=== PATIENT | male | born 1955 | race Caucasian/White ===

== ENCOUNTER 2016-12-09 08:43 | Outpatient (CLI) | payer OTHER ==
[~2016-12-09] VITALS: Ht 177.8 cm; Wt 81.6 kg
[2016-12-09 09:40] VITALS: BP 113/64
[2016-12-09] MEDS ORDERED: UBID100C26 PO (09:51)
[2016-12-09] MEDS ORDERED: MAGN400C PO (09:51)
[2016-12-09] MEDS ORDERED: MULT-208 PO (09:51)
[2016-12-09] MEDS ORDERED: ASPI325T4 PO (09:51)
[2016-12-09] MEDS ORDERED: LIDOCAINE 1% / SOD BICARB 8.4% 20 ML VIAL. IJ ONE ×2 (09:54→10:15)
[2016-12-09 10:45] VITALS: BP 133/73
--- NOTE | 2016-12-09 10:57 | PDOC1 ---
History and Physical Date of Procedure Date of Admission 12/09/16 Procedure Procedure Sono guided right neck mass bx Indication Indication Palpable, nontender right neck mass/adenopathy Past Medical History Past Medical History See Nursing Pre procedure PMH Past Surgical History Past Surgical History See Nursing Pre procedure PSH Current Medications Current Medications Current Medications Lidocaine/Sodium Bicarbonate (Buffered Lidocaine 1%) 20 ml STK-MED ONCE IJ ; Start 12/09/16 at 09:54; Stop 12/09/16 at 09:55; Status DC Lidocaine/Sodium Bicarbonate (Buffered Lidocaine 1%) 20 ml 1X ONCE IJ Last administered on 12/09/16t 10:32; Start 12/09/16 at 10:15; Stop 12/09/16 at 10:16; Status DC Active Scripts Active Reported Aspirin 325 Mg Tablet 1 Tab PO DAILY Magnesium (Magnesium Oxide) 400 Mg Capsule 1 Cap PO BID Coq-10 (Ubidecarenone) 100 Mg Capsule 100 Mg PO DAILY Multi-Day Vitamins (Multivitamin) 1 Each Tablet 1 Tab PO DAILY Allergies Allergies: Coded Allergies: No Known Drug Allergies (Unverified , 12/09/16) Physical Exam Vital Signs Vital Signs Date Time Temp Pulse Resp B/P Pulse Ox O2 Delivery O2 Flow Rate FiO2 12/09/16 09:43 Room Air 12/09/16 09:40 98.3 75 13 113/64 97 98.3 Lungs: Clear to auscultation Heart: Regular rate Psych/Mental Status: Mental status NL Other Palpable, nontender right neck mass centered near angle of mandible Diagnostic Data/Imaging Images None available Assessment Assessment 61 YO male with palpable, nontender right neck mass/adenopathy---? reactive vs lymphoma vs met disease of unknown primary Problems: Plan Plan Sono guided bx right neck mass/adenopathy MARGOT BOLAND MD Dec 09, 2016 10:57
[2016-12-09 11:00] VITALS: BP 135/85
--- NOTE | 2016-12-09 11:01 | PDOC ---
Exam Senior Data Warehouse Architect Senior Data Warehouse Architect [facility] Representative Pharmacy Services Representative F N[facility] Pre-Procedure Diagnosis Pre-Procedure Diagnosis 61 YO male with palpable, nontender right neck mass/adenopathy---lymphoma vs met disease of unknown primary vs reactive/inflammatory Post-Procedure Diagnosis Post-Procedure Diagnosis Same Procedure Performed Procedure Performed Sono guided right neck mass bx Type of Anesthesia Type of Anesthesia Local only Estimated Blood Loss EBL: Minimal Specimens Specimans 2 14G core bx to path in formalin 2 14G core bx to path in cell flow holding media Condition of Patient Condition of Patient Stable. No apparent complication Disposition Disposition Home from [facility] post recovery, if no problems. F/u with Dr Blackwell. Full report to follow. MARGOT BOLAND MD Dec 09, 2016 11:01
[2016-12-09 11:15] VITALS: BP 144/86
[2016-12-09 11:30] VITALS: BP 143/79
--- NOTE | 2016-12-10 07:36 | RAD ---
Ultrasound-guided biopsy of right neck mass Indication: 61-year-old male with a palpable, nontender right neck mass, centered at angle of mandible. By imaging, this mass measures 4 cm in diameter, most likely represents lymphadenopathy, and lies deep to sternocleidomastoid muscle, inferior to parotid gland, posterior to submandibular gland, and superficial to carotid sheath. Differential considerations would include lymphoma versus metastatic disease of unknown primary versus reactive/inflammatory. Image guided biopsy has been requested. Anesthesia: Local only Procedure: Informed consent was obtained from the patient. Preliminary ultrasound examination of right neck confirmed the presence of a large, 4 cm, nontender right neck mass, centered near angle of mandible. An overlying skin site suitable for ultrasound-guided biopsy was selected, marked, and documented with hard copy ultrasound images. That area was prepped and draped in the usual sterile fashion. Using aseptic technique, local anesthesia, and direct ultrasound guidance, a 13-gauge guide needle was successfully introduced into the right neck mass. A total of 4 14-gauge core biopsy samples were then obtained. 2 samples were submitted in formalin to pathology. 2 samples were submitted in cell flow holding media to pathology. The guide needle was removed and a sterile dressing was applied. Patient tolerated the procedure well without apparent complication. Impression: Uneventful ultrasound-guided biopsy of right neck mass, as described.
--- NOTE | 2016-12-12 14:07 | PATHOLOGY ---
PATHOLOGY REPORT * * * * * * * * FINAL DIAGNOSIS: Lymph node, right neck mass ultrasound-guided biopsy: - METASTATIC POORLY DIFFERENTIATED SQUAMOUS CELL CARCINOMA. SEE COMMENT. COMMENT: Sections of the right neck mass ultrasound-guided biopsy show extensive replacement of lymph node by a metastatic epithelial neoplasm. The malignant cells are present in irregular solid nests which show focal central necrosis. The malignant cells are large and have a high N/C ratio with small amounts of pale eosinophilic cytoplasm. The malignant cells possess enlarged, rounded to ovoid nuclei having a finely dispersed chromatin and one or more nucleoli. There is focal marked nuclear pleomorphism. Mitotic figures are readily demonstrated. The tumor shows no obvious evidence of keratinization or gland formation. There are occasional non-caseating granulomas identified within the lymph node. A limited panel of immunoperoxidase stains is obtained and yields the following results: P40: tumor cells positive P16: tumor cells positive The morphologic and immunophenotypic findings are supportive of the diagnosis of metastatic poorly differentiated squamous cell carcinoma. Would suspect an oropharyngeal or nasopharyngeal primary site. The case is also examined by Dr. Mira Muhammad, who concurs with the diagnosis. (JPM:; d/t: 12/11/16) Special Stains Performed: immunoperoxidase stains for P40 and P16. REPORT ELECTRONICALLY SIGNED BY: Edward Velez M.D. DATE/TIME: 12/12/2016 14:06 * * * * * * * * GROSS PATHOLOGY: Received in formalin labeled "Tawanda Penn, right neck mass biopsy," are two distinct needle cores of garcia soft tissue ranging from 1.5 to 2.0 cm in length, which are submitted entirely in cassette A1. (CAA; 12/09/2016) INITIAL CPT CODE(S): A; 39068, 39831, 46434 Professional services performed by [facility] at [facility] [address] [place] [address] Technical services performed by [facility] at [address] [place] [address], [address], [place] [address]. SPECIMEN(S) RECEIVED: A.Right neck mass CLINICAL HISTORY: Right neck mass, adenopathy, lymphoma vs. mets with unknown primary vs. reactive, no history of primary tumor PATIENT: TAWANDA PENN /AGE: 805/27/1955 (Age: 61) PATIENT #: [id number] ALT CASE #: SPECIMEN COLLECTION DATE: 12/09/2016 SPECIMEN RECEIVED DATE: 12/09/2016 [facility] - [address] [place] [address] - PHONE: [phone] * * * END OF REPORT * * *
== END 2016-12-09 11:50 | disposition home or self-care (01) ==
LOC: INTRAD 08:43
PROVIDERS: ATTEND Family Medicine
DX: C96.9 Malignant neoplasm of lymphoid, hematopoietic and related tissue, unspecified (principal); Z87.891 Personal history of nicotine dependence
CPT/HCPCS: 38505; 76942; 88305; 88341; 88342; G0641